=== PATIENT | female | born 1945 | race Caucasian/White ===

== ENCOUNTER 2016-09-28 09:24 | Emergency (ER) | payer MEDICARE, BC ==
[~2016-09-28] VITALS: Ht 167.6 cm; Wt 63.5 kg
[2016-09-28] MEDS ORDERED: Hydrogen Peroxide 473ml Bottle TOPIC ONE ×2 (09:30→10:00)
[2016-09-28 09:31] VITALS: BP 155/89
[2016-09-28] MEDS ORDERED: BUPROPION XL300 MG ORAL (09:34)
[2016-09-28] MEDS ORDERED: CRESTOR10 M2 ORAL (09:34)
--- NOTE | 2016-09-28 09:51 | Emergency Room Report ---
History of Present Illness General Chief Complaint: Multiple Trauma/Fall Source: Patient Present Illness HPI Patient reports that just prior to arrival while she was working in the garden She tripped fell forward And sustained laceration to her midforehead Patient denies any loss of consciousness however did state later that she was not sure Also complains of discomfort from grabbing a cactus with her left hand And abrasions to her right knee Denies any neck pain denies any photophobia Denies any chest pain or short of breath pain to the scalp fore head area is 3/ 10 Allergies: Coded Allergies: No Known Allergies (Unverified , 09/28/16) Patient History Past Medical History: see triage record Pertinent Family History: none Reviewed Nursing Documentation: PMH: Agreed, PSxH: Agreed Nursing Documentation-PMH Past Medical History: No Stated History Review of Systems All Other Systems: negative except mentioned in HPI Physical Exam Vital Signs Date Time Temp Pulse Resp B/P Pulse Ox O2 Delivery O2 Flow Rate FiO2 09/28/16 09:20 98.2 70 16 155/89 99 Room Air Sp02 EP Interpretation: reviewed, normal General Appearance: well appearing, no apparent distress Head: other - 1 cm associated hematoma left forehead, approximately 4 cm laceration involving the scalp approximately quarter of a centimeter of the laceration does involve distal to the hairline Eyes: bilateral eye EOMI, bilateral eye PERRL ENT: normal pharynx Neck: supple Respiratory: chest non-tender, lungs clear Cardiovascular #1: regular rate, rhythm, no edema Genitourinary: no CVA tenderness Musculoskeletal: normal inspection Neurologic: alert, oriented x3, responsive Skin: other - Several areas of pinpoint injury appear to be likely cactus needles no obvious retained material, abrasion to the right knee Lymphatic: no adenopathy Procedures Laceration/Wound Repair Laceration/Wound Repair : Consent: Verbal Wound Location: head, face Wound's Depth, Shape: into muscle, irregular Wound Length (cm): 4 Wound Explored: no foreign body removed Irrigated w/ Saline (ccs): 200 Betadine Prep?: Yes Anesthesia: 1% Lidocaine Volume Anesthetic (ccs): 5 Wound Debrided: minimal Wound Repaired With: sutures - 4 sutures, alley - 4 alley Suture Size/Type: 5:0 Number of Sutures: 4 Layer Closure?: No Sterile Dressing Applied?: No Splint Applied?: No Sling Applied?: No Patient Tolerated: Well Complications: None Medical Decision Making Diagnostic Impression: Primary Impression: Head injury Additional Impressions: Scalp laceration Concussion ER Course Patient did well through her stay Patient CT imaging was negative Given her complaints from previous of having a long-standing cough x-ray was obtained did not show any acute pathology Please refer to the specific procedure Notes the specifics patient was observed further is doing hemodynamically well At this time stable for close outpatient followup Chest X-Ray Diagnostic Results Chest X-Ray Diagnostic Results : Chest X-Ray Ordered: Yes # of Views/Limited/Complete: 1 View Indication: Chest Pain EP Interpretation: Yes Interpretation: no consolidation, no effusion, no pneumothorax, no acute cardiopulmonary disease Impression: No acute disease Interpreting ER Provider: rayo lamb, DO CT/MRI/US Diagnostic Results CT/MRI/US Diagnostic Results : Impression CT head no acute disease Last Vital Signs Date Time Temp Pulse Resp B/P Pulse Ox O2 Delivery O2 Flow Rate FiO2 09/28/16 09:31 16 155/89 99 Room Air 09/28/16 09:20 98.2 70 Status: improved Disposition: HOME, SELF-CARE Condition: Improved Scripts Ibuprofen* (MOTRIN*) 600 Mg Tablet 600 MG ORAL Q8H Y for For Pain, #20 TAB 0 Refills Prov: RAYO LAMB D.O. 09/28/16 Additional Instructions: Patient is provided with the discharge instructions notified to follow up with primary doctor in the next 2-3 days otherwise return to the er with any worsening symptoms. Please note that this report is being documented using [employer] technology. This can lead to erroneous entry secondary to incorrect interpretation by the dictating instrument. RAYO LAMB D.O. Sep 28, 2016 09:51
[2016-09-28] MEDS ORDERED: Lidocaine 1% MPF 10mg/ml 5ml ONE (09:56)
--- NOTE | 2016-09-28 10:28 | Diagnostic Imaging Report ---
Indications: Head trauma, status post fall Technique: Spiral acquisitions obtained through the brain. Angled axial and coronal 5 x 5 mm slices were reconstructed. Total dose length product 1390 mGycm. CTDI vol(s) 70 mGy. Dose reduction achieved using automated exposure control Comparison: None Findings: No acute hemorrhage or edema. No mass effect or midline shift. Normal huang-white differentiation. There is age-related enlargement of the ventricles and extra axial CSF spaces. 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 This does not result in any significant mass defect. There is a left frontal scalp laceration. No underlying calvarial fracture. Impression: Positive for left frontal scalp laceration Negative for acute intracranial bleed or mass effect Mild age-related cerebral volume loss. The CT scanner at [facility] is accredited by the [employer] and the scans are performed using protocols designed to limit radiation exposure to as low as reasonably achievable to attain images of sufficient resolution adequate for diagnostic evaluation.
[2016-09-28] MEDS ORDERED: Bacitracin Oint UD TOPIC ONE (11:04)
[2016-09-28 11:25] VITALS: BP 133/78
[2016-09-28] MEDS ORDERED: IBUPROFEN600 MG ORAL (12:16)
[2016-09-28 12:21] VITALS: BP 170/61
--- NOTE | 2016-09-28 15:45 | Diagnostic Imaging Report ---
Indication: COUGH Technique: One view of the chest Comparison: none Findings: Lungs and pleural spaces are clear except for minimal atelectasis at the left lateral lung base. Heart size is normal. Impression: Minimal left basilar atelectasis No acute process otherwise
== END 2016-09-28 12:20 | disposition home or self-care (01) ==
LOC: EDBD 09:24 → EMR 09:58
DX: S01.81XA Laceration without foreign body of other part of head, initial encounter (principal); S80.211A Abrasion, right knee, initial encounter; S06.0X0A Concussion without loss of consciousness, initial encounter; W01.0XXA Fall on same level from slipping, tripping and stumbling without subsequent striking against object, initial encounter; Y92.007 Garden or yard of unspecified non-institutional (private) residence as the place of occurrence of the external cause
CPT/HCPCS: 70450; 71010